=== PATIENT | male | born 1940 | race Caucasian/White ===

== ENCOUNTER 2017-05-06 06:47 | Day surgery (SDC) | payer MEDICARE ==
[~2017-05-06] VITALS: Ht 190.5 cm; Wt 127.5 kg
[~2017-05-06 06:47] MED LIST: ATEN100; CARB200; CEPH500 PO; CHOL10002 PO; Doxycycline Mo100 M1 PO; LISHYD2025 PO; MORP30; OMEPRAZOLE MAGN20 MG PO; OXYACE7.5T PO; PRED20 PO; PREG75; STOOL SOFTENER1 EAC1 PO; [UNRECOGNIZED DRUG - REMARK]
[2018-05-11] MEDS ORDERED: Calcium 250+D1 EACH PO (14:43)
== END 2017-05-06 08:45 | disposition home or self-care (01) ==
LOC: ORSCSDS 06:47
PROVIDERS: Internal Medicine Gastroenterology
PROC: 0DJ08ZZ Inspection of Upper Intestinal Tract, Via Natural or Artificial Opening Endoscopic (ICD-10-PCS; principal; 2017-05-06 08:00)
DX: K21.9 Gastro-esophageal reflux disease without esophagitis (principal); K22.2 Esophageal obstruction; Z85.01 Personal history of malignant neoplasm of esophagus; I10 Essential (primary) hypertension; Z87.891 Personal history of nicotine dependence; Z79.899 Other long term (current) drug therapy
CPT/HCPCS: J0330; J1980; J2405; J7120

== ENCOUNTER 2018-05-19 08:48 | Day surgery (SDC) | payer MEDICARE ==
[~2018-05-19] VITALS: Ht 188 cm; Wt 128.8 kg
[~2018-05-19 08:48] MED LIST changes: +Calcium 250+D1 EACH PO
== END 2018-05-19 11:28 | disposition home or self-care (01) ==
LOC: ORSCSDS 08:48
PROVIDERS: Internal Medicine Gastroenterology
PROC: 0DB48ZX Excision of Esophagogastric Junction, Via Natural or Artificial Opening Endoscopic, Diagnostic (ICD-10-PCS; principal; 2018-05-19 10:15)
PROC: 0D778ZZ Dilation of Stomach, Pylorus, Via Natural or Artificial Opening Endoscopic (ICD-10-PCS; principal; 2018-05-19 10:15)
PROC: 0D758ZZ Dilation of Esophagus, Via Natural or Artificial Opening Endoscopic (ICD-10-PCS; principal; 2018-05-19 10:15)
DX: R13.10 Dysphagia, unspecified (principal); K22.2 Esophageal obstruction; K21.0 Gastro-esophageal reflux disease with esophagitis; Z85.01 Personal history of malignant neoplasm of esophagus; I10 Essential (primary) hypertension; Z87.891 Personal history of nicotine dependence; Z79.899 Other long term (current) drug therapy
CPT/HCPCS: 88305; 88312; C1726; J7120

== ENCOUNTER → 2018-07-08 | Outpatient (CLI) | payer MEDICARE | END | disposition home or self-care (01) | LOC: LAB SHORT 08:30 → PLD 08:30 | DX: D22.21 Melanocytic nevi of right ear and external auricular canal (principal) | CPT/HCPCS: 88305; 88342 ==

== ENCOUNTER → 2018-08-05 | Outpatient (CLI) | payer MEDICARE | END | disposition home or self-care (01) | LOC: PLD 14:06 → LAB SHORT 14:06 | DX: D22.21 Melanocytic nevi of right ear and external auricular canal (principal) | CPT/HCPCS: 88305 ==

== ENCOUNTER 2019-03-04 16:55 | Emergency (ER) | payer MEDICARE ==
[~2019-03-04] VITALS: Ht 188 cm; Wt 124.7 kg
[2019-03-04 18:29] LABS: BASOPHILS ABSOLUTE AUTO 0.02 K/mm3 (0.00-0.23); BASOPHILS PERCENT AUTO 0 % (0-2); EOSINOPHILS ABSOLUTE AUTO 0.04 K/mm3 (0.00-0.68); EOSINOPHILS PERCENT AUTO 1 % (0-6); Hematocrit 41.7 % (37.0-53.0); IMMATURE GRAN ABSOLUTE AUTO 0.02 K/mm3 (0.00-0.10); IMMATURE GRAN PERCENT AUTO 0 % (0-1); LYMPHOCYTES ABSOLUTE AUTO 0.75 K/mm3 (0.84-5.20); LYMPHOCYTES PERCENT AUTO 10 % (21-46); MONOCYTES ABSOLUTE AUTO 0.48 K/mm3 (0.16-1.47); MONOCYTES PERCENT AUTO 6 % (4-13); Mean Corpuscular HGB 31.2 pg (26.0-34.0); Mean Corpuscular HGB Conc 33.6 g/dL (31.5-36.5); Mean Corpuscular Volume 93 fL (80-100); Mean Platelet Volume 9.9 fL (9.1-12.4); NEUTROPHILS ABSOLUTE AUTO 6.49 K/mm3 (1.96-9.15); NEUTROPHILS PERCENT AUTO 83 % (41-73); Platelet Count 341 K/mm3 (150-400); RDW Coefficient Variation 12.3 % (11.7-14.2); RDW Standard Deviation 42.5 fL (35.1-46.3); Red Blood Cell Count 4.49 M/mm3 (4.30-5.90)
[2019-03-04 18:54] LABS: Troponin I <0.015 ng/mL (0.000-0.040)
[2019-03-04 18:59] LABS: Alanine Aminotransfer (ALT/SGP 26 U/L (12-78); Alk Phos 79 U/L (50-136); Anion Gap 7 mmol/L (6-16); Aspartate Aminotrans (AST/SGOT 35 U/L (12-37); Bilirubin, Total 0.4 mg/dL (0.1-1.0); Blood Urea Nitrogen 11 mg/dL (8-24); CO2, Blood 27 mmol/L (21-32); Calcium, Blood 9.1 mg/dL (8.5-10.1); Chloride, Blood 93 mmol/L (98-108); Creatinine, Blood 0.78 mg/dL (0.60-1.20); Globulin, Blood 3.9 g/dL (2.2-4.0); Glomerular Filtration Rate >60 (60-); Glucose, Blood 128 mg/dL (70-99); Sodium, Blood 127 mmol/L (136-145); Total Protein, Blood 7.9 g/dL (6.4-8.2)
[2019-03-04] MEDS ORDERED: Zithromax250 MG PO (19:46)
[2019-03-04] MEDS ORDERED: Flonase 0.05% N16 GM (19:46)
[2019-03-04] MEDS ORDERED: BENZ100A PO (19:46)
== END 2019-03-04 22:08 | disposition home or self-care (01) ==
LOC: ER 16:55
PROVIDERS: Physician Assistant
DX: J18.1 Lobar pneumonia, unspecified organism (principal); Z87.891 Personal history of nicotine dependence; Z88.7 Allergy status to serum and vaccine; Z79.899 Other long term (current) drug therapy
CPT/HCPCS: 36415; 71046; 80053; 83605; 84484; 85025; 93005; 93010; 96365; 96367; 96375; 99284-25; J0456; J0696; J2405; J7030; J7050

== ENCOUNTER 2019-04-20 07:33 | Day surgery (SDC) | payer MEDICARE ==
[~2019-04-20] VITALS: Ht 190.5 cm; Wt 128.7 kg
[~2019-04-20 07:33] MED LIST changes: +BENZ100A PO; +CALCIUM; +Flonase 0.05% N16 GM; +Zithromax250 MG PO
--- NOTE | 2019-04-20 08:27 | NUR ---
04/20/19 0827 Isela Castaneda 1 IV MISS IN RH BY ARELY VALVE 1 MISSED IV IN RW BY ARELY INFILTRATED 1 GOOD IV IN RH BY NELSON BORRERO
== END 2019-04-20 10:05 | disposition home or self-care (01) ==
LOC: ORSCSDS 07:33
PROVIDERS: Internal Medicine Gastroenterology
PROC: 0DB48ZX Excision of Esophagogastric Junction, Via Natural or Artificial Opening Endoscopic, Diagnostic (ICD-10-PCS; principal; 2019-04-20 09:00)
DX: K22.70 Barrett's esophagus without dysplasia (principal); Z85.01 Personal history of malignant neoplasm of esophagus; I10 Essential (primary) hypertension; Q45.8 Other specified congenital malformations of digestive system; E78.5 Hyperlipidemia, unspecified; Z87.891 Personal history of nicotine dependence; Z79.899 Other long term (current) drug therapy
CPT/HCPCS: 88305; 88312; J2704; J7120

== ENCOUNTER → 2019-07-13 | Outpatient (CLI) | payer MEDICARE | END | disposition home or self-care (01) | LOC: LAB SHORT 11:30 → PLD 11:30 | DX: D22.61 Melanocytic nevi of right upper limb, including shoulder (principal); D23.61 Other benign neoplasm of skin of right upper limb, including shoulder | CPT/HCPCS: 88305 ==

== ENCOUNTER 2022-03-28 07:05 | Emergency (ER) | payer MEDICARE ==
[~2022-03-28] VITALS: Ht 188 cm; Wt 117.9 kg
[2022-03-28 07:53] LABS: BASOPHILS ABSOLUTE AUTO 0.05 K/mm3 (0.00-0.23); BASOPHILS PERCENT AUTO 0 % (0-2); EOSINOPHILS ABSOLUTE AUTO 0.11 K/mm3 (0.00-0.68); EOSINOPHILS PERCENT AUTO 1 % (0-6); Hematocrit 38.9 % (37.0-53.0); Hemoglobin 13.1 g/dL (13.5-17.5); IMMATURE GRAN ABSOLUTE AUTO 0.04 K/mm3 (0.00-0.10); IMMATURE GRAN PERCENT AUTO 0 % (0-1); LYMPHOCYTES ABSOLUTE AUTO 0.87 K/mm3 (0.84-5.20); LYMPHOCYTES PERCENT AUTO 7 % (21-46); MONOCYTES ABSOLUTE AUTO 1.05 K/mm3 (0.16-1.47); MONOCYTES PERCENT AUTO 8 % (4-13); Mean Corpuscular HGB 31.3 pg (26.0-34.0); Mean Corpuscular HGB Conc 33.7 g/dL (31.5-36.5); Mean Corpuscular Volume 93 fL (80-100); Mean Platelet Volume 10.2 fL (9.1-12.4); NEUTROPHILS ABSOLUTE AUTO 11.09 K/mm3 (1.96-9.15); NEUTROPHILS PERCENT AUTO 84 % (41-73); Platelet Count 345 K/mm3 (150-400); RDW Coefficient Variation 14.1 % (11.7-14.2); RDW Standard Deviation 48.1 fL (35.1-46.3); Red Blood Cell Count 4.18 M/mm3 (4.30-5.90); White Blood Cell Count 13.21 K/mm3 (4.00-11.30)
[2022-03-28] MEDS ORDERED: CARBIDOPA-LEVO1 EA15 PO (08:00)
[2022-03-28] MEDS ORDERED: ZESTRIL40 MG PO (08:01)
[2022-03-28] MEDS ORDERED: Amlodipine Bes2.5 MG PO (08:01)
[2022-03-28] MEDS ORDERED: OMEP20ER PO (08:02)
[2022-03-28 08:19] LABS: Albumin, Blood 3.9 g/dL (3.4-5.0); Albumin/Globulin Ratio 1.3 (0.8-1.8); Bilirubin, Total 0.4 mg/dL (0.1-1.0); Bun/Creatinine Ratio 21.2 (12.0-20.0); Calcium, Blood 9.1 mg/dL (8.5-10.1); Creatinine, Blood 0.8 mg/dL (0.60-1.20); Globulin, Blood 3.1 g/dL (2.2-4.0); Potassium, Blood 3.9 mmol/L (3.5-5.5)
[2022-03-28 09:18] LABS: Influenza A, PCR NEGATIVE (NEGATIVE); Influenza B, PCR NEGATIVE (NEGATIVE); Resp Syncytial Virus, PCR NEGATIVE (NEGATIVE); SARS-Cov-2 (COVID-19) PCR, MMC NEGATIVE (NEGATIVE)
== END 2022-03-28 11:48 | disposition home or self-care (01) ==
LOC: ER 07:05
PROVIDERS: Student in an Organized Health Care Education/Training Program
DX: R07.9 Chest pain, unspecified (principal); I10 Essential (primary) hypertension; Z88.7 Allergy status to serum and vaccine; Z79.899 Other long term (current) drug therapy
CPT/HCPCS: 0241U; 36415; 71046; 71260; 80053; 83735; 83880; 84484; 85025; 85379; 93005; 93010; Q9967

== ENCOUNTER 2022-05-07 06:35 | Day surgery (SDC) | payer MEDICARE ==
[~2022-05-07] VITALS: Ht 188 cm; Wt 120.6 kg
[~2022-05-07 06:35] MED LIST changes: +Amlodipine Bes2.5 MG PO; +CARBIDOPA-LEVO1 EA15 PO; +OMEP20ER PO; +ZESTRIL40 MG PO
== END 2022-05-07 09:07 | disposition home or self-care (01) ==
LOC: ORSCSDS 06:35
PROVIDERS: Internal Medicine Gastroenterology
PROC: 0DJ08ZZ Inspection of Upper Intestinal Tract, Via Natural or Artificial Opening Endoscopic (ICD-10-PCS; principal; 2022-05-07 08:00)
DX: D64.9 Anemia, unspecified (principal); K22.11 Ulcer of esophagus with bleeding; Z85.01 Personal history of malignant neoplasm of esophagus; G20 Parkinson's disease; I10 Essential (primary) hypertension; K21.9 Gastro-esophageal reflux disease without esophagitis; Z79.899 Other long term (current) drug therapy; Z87.891 Personal history of nicotine dependence
CPT/HCPCS: J2704; J7120

== ENCOUNTER 2022-06-11 07:23 | Day surgery (SDC) | payer MEDICARE ==
[~2022-06-11] VITALS: Ht 188 cm; Wt 117.6 kg
[2022-06-11] MEDS ORDERED: THERA-D2000 UNIT (07:43)
== END 2022-06-11 09:35 | disposition home or self-care (01) ==
LOC: ORSCSDS 07:23
PROVIDERS: Internal Medicine Gastroenterology
PROC: 0DJ08ZZ Inspection of Upper Intestinal Tract, Via Natural or Artificial Opening Endoscopic (ICD-10-PCS; principal; 2022-06-11 08:45)
DX: D50.9 Iron deficiency anemia, unspecified (principal); Z87.11 Personal history of peptic ulcer disease; K21.9 Gastro-esophageal reflux disease without esophagitis; K22.70 Barrett's esophagus without dysplasia; G20 Parkinson's disease; I10 Essential (primary) hypertension; Z79.899 Other long term (current) drug therapy
CPT/HCPCS: J2704; J7120